=== PATIENT | female | born 1930 | race Caucasian/White ===

== ENCOUNTER → 2017-02-15 | Outpatient (CLI) | payer MEDICARE, BC ==
[~2017-02-15] MED LIST: ALDACTAZIDE 25/1 TAB PO; AMIODARONE HCL200 MG PO; ARICEPT5 M1 PO; ASPIRIN PO; BACTRIM DS TABL1 TA1 PO; CLOPIDOGREL BIS75 MG PO; HCTZ PO; LASIX20 MG PO; LIPITOR PO; LISINOPRIL PO; MEDROL PO; PRAVACHOL20 MG PO; SECTRAL PO; TYLENOL PM; VIT
--- NOTE | ~2017-02-15 | US84 ---
[id number] [facility] [address] [address] [place], [place] [address] [id number] O MR#: [id number] Acc #: [id number] NAME: GATO NICOLAS : 1930 SEX: F STUDY DATE/TIME: 02/15/2017 16:46 UNIT: [facility] ROOM: STUDY DESCRIPTION: US LE Veins Complete Brenden Stdy Attending Physician: Iftikhar Mcdonough M.D. Referring Physician: Iftikhar Mcdonough M.D. Ordering Physician: Iftikhar Mcdonough M.D. Primary Care Physician: Carlos Fischer M.D. MEDICAL IMAGING REPORT This report is preliminary unless electronic signature is present EXAM Bilateral lower extremity venous ultrasound HISTORY Intermittent lower extremity swelling for 3 years. TECHNIQUE Venous ultrasound examination of both lower extremities was performed using grayscale, spectral Doppler and color flow Doppler imaging. FINDINGS The examination is negative. There is no evidence of deep venous thrombus from the groin to the lower calf bilaterally. Visualized greater saphenous veins are also patent. IMPRESSION Negative examination. No evidence of lower extremity deep venous thrombosis. Dictated by... Ortega Odell M.D. THIS IS AN ELECTRONICALLY VERIFIED REPORT Ortega Odell M.D. at 02/16/2017 11:20 PM DFL/jaquanr TD: 02/16/2017 05:13 JOB #: [id number] MEDICAL IMAGING REPORT Page 1 of 1 COPY
== END | disposition home or self-care (01) ==
LOC: CNIV 16:22
DX: R60.0 Localized edema (principal); I10 Essential (primary) hypertension; I48.91 Unspecified atrial fibrillation
CPT/HCPCS: 93970

== ENCOUNTER → 2017-04-18 | Day surgery (SDC) | payer MEDICARE, BC ==
--- NOTE | ~2017-04-18 | OR ---
Unit #: [id number] #: [id number] Patient: GATO NICOLAS [id number] [address] [place], [place] [address] [id number] O MR#: [id number] NAME: GATO NICOLAS. ROOM: Date of Procedure: 04/18/2017 Admission Date: 04/18/2017 Surgeon: Flako Brumfield M.D. : 1930 Attending Physician: Flako Brumfield M.D. Primary Care Physician: Carlos Fischer M.D. OPERATIVE REPORT PREOPERATIVE DIAGNOSES Back pain, degenerative disk disease, spinal stenosis, lumbar spondylosis. POSTOPERATIVE DIAGNOSES Back pain, degenerative disk disease, spinal stenosis, lumbar spondylosis. PROCEDURE PERFORMED Lumbar epidural steroid injection with fluoroscopic guidance for needle localization. HISTORY OF PRESENT ILLNESS The patient is an 86-year-old female with previously mentioned diagnosis. She has had worsening back pain. She does have number of falls. She has some pain in her right flank, which is likely due to bruised ribs. Back pain predated these falls and was consistent with spondylosis, degenerative disk disease, and spinal stenosis. Plan is for trial of epidural steroids based on history, pathology, symptomatology, and failure to respond to this other conservative measures. DESCRIPTION OF PROCEDURE The patient was placed in the seated position. Standard monitors were applied. Sterile prep and drape of the lumbar area was performed. The skin at the L4-L5 level was localized with 1% lidocaine. An 18-gauge [employer] needle was then advanced via loss of resistance technique and fluoroscopic guidance in toward the epidural space. After confirming proper positioning with fluoroscopy and radiographic contrast, 80 mg of Depo-Medrol and 4 mL of 0.125% bupivacaine were deposited. The patient tolerated the procedure otherwise well and was discharged to recovery room in stable condition. There was discomfort during the injection phase. Dictated by... Flako Brumfield M.D. LHP/benl TD: 04/18/2017 16:52 JOB #: [id number] Unit #: [id number] #: [id number] Patient: GATO NICOLAS OPERATIVE REPORT Page 1 of 1 X Flako Brumfield MD X PROCEDURE OPERATIVE NOTE
== END | disposition home or self-care (01) ==
LOC: CCSC 07:23
DX: M51.36 Other intervertebral disc degeneration, lumbar region (principal); M47.896 Other spondylosis, lumbar region; M48.06 Spinal stenosis, lumbar region; I10 Essential (primary) hypertension; I25.2 Old myocardial infarction
CPT/HCPCS: J1040; J2250

== ENCOUNTER → 2017-05-15 | Outpatient (CLI) | payer MEDICARE, BC, OTHER ==
--- NOTE | ~2017-05-15 | US77 ---
[facility] A Service of [facility] RADIOLOGY TEXT RESULTS PATIENT: GATO NICOLAS LOCATION: [facility] : [birth year] UNIT #: [id number] AGE: [address]: Carlos Alcantara MD SEX: F ORDER DR: [id number] [facility] [address] [place], [place] [address] [id number] O MR#: [id number] Acc #: [id number] NAME: GATO NICOLAS. : 1930 SEX: F STUDY DATE/TIME: 05/15/2017 13:58 UNIT: [facility] ROOM: STUDY DESCRIPTION: US Kidney Bilateral Complete Attending Physician: Carlos Alcantara M.D. Referring Physician: Carlos Alcantara M.D. Ordering Physician: Physician Non-Staff Primary Care Physician: Carlos Fischer M.D. MEDICAL IMAGING REPORT This report is preliminary unless electronic signature is present EXAM Bilateral renal ultrasound INDICATION Chronic kidney disease, stage 3. COMPARISON No comparison. FINDINGS The right kidney is 9.5 cm in length. There is no cyst, mass or hydronephrosis. The bladder is normal. The left kidney is 9.4 cm in length and also appears normal. The cortex may be slightly echogenic bilaterally. IMPRESSION There is no hydronephrosis. The kidneys are both normal in size. Dictated by... Garfield Landers M.D. THIS IS AN ELECTRONICALLY VERIFIED REPORT Garfield Landers M.D. at 05/16/2017 7:07 AM ENMA/farzaneh TD: 05/15/2017 21:52 JOB #: [id number] MEDICAL IMAGING REPORT Page 1 of 1 COPY
== END | disposition home or self-care (01) ==
LOC: CGUS 13:22
DX: N18.3 Chronic kidney disease, stage 3 (moderate) (principal)
CPT/HCPCS: 76770